=== PATIENT | male | born 1950 | race Caucasian/White ===

== ENCOUNTER 2018-09-13 15:15 | Outpatient (CLI) | payer MEDICARE ==
--- NOTE | 2018-09-13 21:42 | RAD ---
LEFT SHOULDER THREE VIEWS: 09/13/2018 FINDINGS: No fracture or dislocation is seen. There are no periarticular calcifications. Mild widening of the AC joint is seen, without offset. A few bony fragments are seen, near the end of the clavicle, sugg esting that there may have been old trauma here. The scapula appears intact. The visible adjacent r ibs are unremarkable. IMPRESSION: Probable old trauma at the acromioclavicular joint. No acute findings. POS: HOME
== END 2018-09-13 15:16 | disposition home or self-care (01) ==
LOC: BURRAD 15:15
PROVIDERS: ATTEND Family Medicine
DX: M25.512 Pain in left shoulder (principal)